=== PATIENT | male | born 1935 | race Caucasian/White ===

== ENCOUNTER 2017-06-24 13:59 | Inpatient (IN) ==
[2017-06-24] MEDS ORDERED: DOCUSATE SODIUM 100 MG CAPSULE PO PRN (17:24)
[2017-06-24] MEDS ORDERED: MORPHINE 2 MG/1 ML SYRINGE IV PRN (17:24)
[2017-06-24] MEDS ORDERED: diphenhydrAMINE CAP 25 MG CAPSULE PO PRN (17:24)
[2017-06-24] MEDS ORDERED: guaiFENesin/DM ER 600-30 MG TABLET PO PRN (17:24)
[2017-06-24] MEDS ORDERED: ACETAMINOPHEN 325 MG TABLET PO PRN ×2 (17:24)
[2017-06-24] MEDS ORDERED: ONDANSETRON 4 MG/2 ML VIAL IV PRN (17:24)
[2017-06-24] MEDS ORDERED: IPRATROPIUM 500 MCG/2.5 ML NEB RESP TX PRN (17:32)
[2017-06-24] MEDS ORDERED: BECLOMETHASONE 40 MCG/PUFF INHALER 8.7 GM INH PRN (17:32)
[2017-06-24] MEDS ORDERED: FLUTICASONE 50 MCG NASAL SPRAY 16 GM BOTTLE BOTH NARES PRN (17:32)
[2017-06-24 17:58] LABS: Basophils # 0.1 10*3/uL (0.0-0.2); Basophils % 0.7 % (0.0-0.8); Eosinophils # 0.1 10*3/uL (0.0-0.87); Eosinophils % 1.7 % (0.00-10.9); Hematocrit 39.6 VOL% (42.0-52.0); Hemoglobin 13.4 GM/DL (14.0-18.0); Immature Granulocytes % 0.1 %; Immature Granulocytes Absolute 0.01 #; Lymphocytes # 0.9 10*3/uL (1.4-4.0); Lymphocytes % 12.6 % (21.2-54.2); Mean Corpuscular HGB Conc 33.8 GM/DL (32-36); Mean Corpuscular Hemoglobin 32 PG (27-34); Mean Corpuscular Volume 94.1 FL (87-102); Mean Platelet Volume 10.5 FL (9.6-12.0); Monocytes # 0.9 10*3/uL (0.11-0.8); Monocytes % 12.3 % (1.7-12.7); Neutrophils # 5.2 10*3/uL (1.4-7.4); Neutrophils % 72.6 % (38.7-73.9); Platelet Count 137 T/CUMM (130-400); Red Blood Count 4.21 MC/CUMM (3.8-5.5); Red Cell Distribution Width 13.7 % (9.3-17.3); White Blood Count 7.2 T/CUMM (4-12)
[2017-06-24] MEDS ORDERED: VANCOMYCIN INJ 1,000 MG in SODIUM CHLORIDE 0.9% 250 ML IV ONE (18:00)
[2017-06-24 18:14] LABS: INR 2.1
[2017-06-24 18:21] LABS: PT Patient Result 21.4 SECS
[2017-06-24 18:30] LABS: Calcium 8.5 MG/DL (8.5-10.1); Magnesium 2.2 MG/DL (1.8-2.4); Osmolality,Calculated 286.1 MOS/KG (273-304); Potassium 4.5 MMOL/L (3.5-5.1)
[2017-06-24] MEDS: SODIUM CHLORIDE 0.9% 1,000 ML IV SCH (19:29)
[2017-06-24] MEDS: MONTELUKAST 10 MG TABLET PO SCH (21:14)
[2017-06-24] MEDS: ALPRAZolam 0.25 MG TABLET PO SCH (21:14)
[2017-06-24] MEDS: TAMSULOSIN 0.4 MG CAPSULE PO SCH (21:14)
[2017-06-25 05:43] LABS: INR 1.9
[2017-06-25] MEDS: SODIUM CHLORIDE 0.9% 1,000 ML IV SCH (06:25)
[2017-06-25] MEDS: VANCOMYCIN INJ 1,000 MG in SODIUM CHLORIDE 0.9% 250 ML IV SCH ×2 (08:52→20:46)
[2017-06-25] MEDS: METOPROLOL SUCCINATE XL 50 MG TABLET PO SCH (08:55)
[2017-06-25] MEDS: ASPIRIN EC 81 MG TABLET PO SCH (10:19)
[2017-06-25] MEDS: PANTOPRAZOLE 40 MG TABLET PO SCH (10:19)
[2017-06-25] MEDS: ALPRAZolam 0.25 MG TABLET PO SCH ×2 (10:19→20:42)
[2017-06-25] MEDS ORDERED: BUPIVACAINE 0.5% 50 ML VIAL ONE ×2 (10:48→11:29)
[2017-06-25] MEDS ORDERED: POLYETHYLENE GLYCOL POWDER 17 GM PACK PO PRN (18:26)
[2017-06-25] MEDS: MONTELUKAST 10 MG TABLET PO SCH (20:41)
[2017-06-25] MEDS: TAMSULOSIN 0.4 MG CAPSULE PO SCH (20:42)
[2017-06-26 06:11] LABS: Basophils # 0.1 10*3/uL (0.0-0.2); Eosinophils # 0.2 10*3/uL (0.0-0.87); Eosinophils % 3.7 % (0.00-10.9); Hematocrit 37.6 VOL% (42.0-52.0); Hemoglobin 12.6 GM/DL (14.0-18.0); Immature Granulocytes % 0.5 %; Immature Granulocytes Absolute 0.03 #; Lymphocytes % 15.9 % (21.2-54.2); Mean Corpuscular HGB Conc 33.5 GM/DL (32-36); Mean Corpuscular Hemoglobin 32 PG (27-34); Mean Platelet Volume 10.4 FL (9.6-12.0); Monocytes # 0.7 10*3/uL (0.11-0.8); Monocytes % 11.8 % (1.7-12.7); Neutrophils # 4.2 10*3/uL (1.4-7.4); Neutrophils % 67.1 % (38.7-73.9); Platelet Count 139 T/CUMM (130-400); Red Cell Distribution Width 13.4 % (9.3-17.3); White Blood Count 6.3 T/CUMM (4-12)
[2017-06-26 06:18] LABS: INR 1.5; PT Patient Result 16.1 SECS
[2017-06-26 06:46] LABS: Blood Urea Nitrogen 20 MG/DL (7-18); Calcium 8.5 MG/DL (8.5-10.1); Glucose 89 MG/DL (74-106); Magnesium 2.2 MG/DL (1.8-2.4); Osmolality,Calculated 284.1 MOS/KG (273-304); Sodium 142 MMOL/L (136-145); Troponin I Only < 0.015 NG/ML (0.00-0.045)
[2017-06-26 07:29] VITALS: BP 125/73
[2017-06-26] MEDS: METOPROLOL SUCCINATE XL 50 MG TABLET PO SCH (08:43)
[2017-06-26] MEDS: PANTOPRAZOLE 40 MG TABLET PO SCH (08:43)
[2017-06-26] MEDS: ASPIRIN EC 81 MG TABLET PO SCH (08:43)
[2017-06-26] MEDS: ALPRAZolam 0.25 MG TABLET PO SCH (08:43)
[2017-06-26] MEDS: VANCOMYCIN INJ 1,000 MG in SODIUM CHLORIDE 0.9% 250 ML IV SCH (08:43)
== END 2017-06-26 11:36 | disposition home or self-care (01) | DRG 572 ==
LOC: SUATTDRO 15:48 → N.3E 15:48
PROVIDERS: ADMIT Internal Medicine; ATTEND Internal Medicine